=== PATIENT | male | born 1995 | race Caucasian/White ===

== ENCOUNTER 2017-06-19 12:37 | Emergency (ER) | payer OTHER ==
[2017-06-19] MEDS ORDERED: Lidocaine 1% PF 5 ML VIAL ONE ×2 (13:08→13:50)
[2017-06-19] MEDS ORDERED: Ibuprofen 800 MG TAB ONE (13:08)
[2017-06-19] MEDS ORDERED: Bacitracin Zinc 1 Packet ONE (13:50)
--- NOTE | 2017-06-19 14:06 | RAD ---
3 VIEWS RIGHT ANKLE: Date: 06/19/17 HISTORY: Laceration to right ankle from glass. FINDINGS: Three views of the right ankle show no evidence of acute fracture or dislocation. There are multiple radiopaque foreign bodies just inferior to the lateral malleolus. There appear to be three total fo reign bodies which are all triangular in shape and likely represent shards of leaded glass. Surround ing soft tissue swelling is seen. IMPRESSION: Multiple glass fragments seen just inferior to the lateral malleolus. POS: [facility]
--- NOTE | 2017-06-19 14:11 | RAD ---
THREE VIEWS RIGHT HAND: Comparison: None. History: Fall with right hand pain. FINDINGS: Three views of the right hand shows a fracture or the right fifth metacarpal neck with overlying sof t tissue swelling. There is hardware in the distal radius. IMPRESSION: Acute fracture of the fifth metacarpal neck. POS: [facility]
--- NOTE | 2017-06-19 16:23 | RAD ---
THREE VIEWS RIGHT ANKLE: Comparison: 06-19-17 at 12:45 p.m. History: Removal of glass from the ankle. FINDINGS: Three views of the right ankle shows removal of the previously seen radiopaque foreign bodies which likely represented glass shards. No fracture or dislocation are seen. No remaining radiopaque foreig n bodies are present. IMPRESSION: Removal of radiopaque foreign bodies. POS: [facility]
== END 2017-06-19 15:18 | disposition home or self-care (01) ==
LOC: ERS 12:37
DX: S62.336A Displaced fracture of neck of fifth metacarpal bone, right hand, initial encounter for closed fracture (principal); S91.011A Laceration without foreign body, right ankle, initial encounter; F32.9 Major depressive disorder, single episode, unspecified; Z79.899 Other long term (current) drug therapy; W25.XXXA Contact with sharp glass, initial encounter
CPT/HCPCS: 12002; 29125; J2001